=== PATIENT | male | born 1980 | race Asian ===

== ENCOUNTER 2019-01-27 16:31 | Emergency (ER) | payer OTHER ==
[~2019-01-27] VITALS: Ht 170.2 cm; Wt 62.8 kg
[2019-01-27 16:36] VITALS: TEMP 96.8
[2019-01-27] MEDS ORDERED: NORVASC 5MG5 MG/TAB PO (17:40)
[2019-01-27] MEDS ORDERED: CEPHALEXIN500 M1 PO (20:11)
[2019-01-27 20:15] VITALS: BP 143/114; PULSE 100
== END 2019-01-27 20:30 | disposition home or self-care (01) ==
LOC: COL.ER 16:31
DX: R04.0 Epistaxis (principal); R03.0 Elevated blood-pressure reading, without diagnosis of hypertension